=== PATIENT | female | born 1980 | race African-American/Black ===

== ENCOUNTER 2019-02-07 10:00 | Emergency (ER) | payer SELFPAY ==
[~2019-02-07] VITALS: Ht 175.3 cm; Wt 68.0 kg
[2019-02-07] MEDS ORDERED: TRAMADOL 50MG TABLET PO ONE (11:45)
[2019-02-07 13:20] VITALS: BP 125/78
== END 2019-02-07 13:22 | disposition home or self-care (01) ==
LOC: ER 10:00
DX: S20.211A Contusion of right front wall of thorax, initial encounter (principal); Z98.890 Other specified postprocedural states; V49.88XA Car occupant (driver) (passenger) injured in other specified transport accidents, initial encounter; Y93.89 Activity, other specified; Y92.89 Other specified places as the place of occurrence of the external cause; Y99.8 Other external cause status
CPT/HCPCS: 71101; 99283